=== PATIENT | female | born 1930 | race Caucasian/White ===

== ENCOUNTER → 2016-06-29 | Outpatient (CLI) | payer MEDICARE ==
[~2016-06-29] MED LIST: ALEN70TA3 PO; CHOL10007 PO; ENAL20TA PO; LEVO50TA5 PO; OMEP20TA63 PO; REGADENOSON 0.4 MG/5 ML DISP.SYRIN. IV ONE; VERA180T4 PO; VIT1CAPS11 PO
--- NOTE | 2016-06-29 14:32 | RAD ---
APPROVED REPORT Test Type: Pharmacological Stress Nurse/Tech: Christy Pompa R.N. Test Indications: chest pain Cardiac History: htn Medications: see attached copy Medical History: see ehr Resting ECG: SR see printout Resting Heart Rate: 68 bpm Resting Blood Pressure: 120/72mmHg Pretest Chest Pain: No chest pain Nurse/Tech Notes lungs cta, heart tones regular Consent: The procedure was explained to the patient in lay terms. Informed consent was witnessed. Juan eout was entered into [employer]. History and Stress Test performed by Christy Pompa R.N. Pharm. Details Pharmacologic stress testing was performed using 0.4mg per 5ml of regadenoson given intravenously ove r 7-10 seconds. Stress Symptoms No chest pain or symptoms. POST EXERCISE Reason for Termination: Infusion complete Target HR: No Max HR: 109 bpm Max Blood Pressure: 121/71mmHg Chest Pain: No. Arrhythmia: No. ST Change: No. INTERPRETATION Stress EKG Conclusion: Baseline EKG showed sinus rhythm. No ischemic changes at peak stress. No arr hythmias. Imaging Protocol IMAGE PROTOCOL: Rest Tc-99m/stress Tc-99m 1 day Rest: Stress: Viability: Radiopharm.Tc99m ShmzyfzamKa44z Sestamibi [id number] 34.4mCi Duration 15min. 10min. Img Date 06/29/2016 06/29/2016 Inj-Img [id number]. 75min. Rest Admin Site:IV - Right AntecubitalAdministrator:Bianka Duckworth, RT (R)(N) Stress Admin Site: IV - Right AntecubitalAdministrator: ANA MARIA Nathan, ARRT (R)(N) STRESS DATA End Diast. Vol.49.0mlAv. Heart Rate72.0bpm End Syst. Vol.6.0mlCO Index BSA0.0L/min Myocardial Mass94.0gEject. Txdfpphk76.0% Stress Rates Pk. Fill Rate3.55EDV/secLVtime Pk. Fill 101.71msec Pk. Empty Rate4.91ESV/secLVtime Pk. Uwnlt490.11msec 04/11 Pk. Fill2.28EDV/sec Stress Scores Regional WT0.00Summed WT1.00 Regional WM0.00Summed WM0.00 Study quality was good. Left Ventricular size was Normal at Rest and Stress. Lung uptake was Normal. Left Ventricular ejection fraction is 88%. The rest and stress images show normal perfusion, normal contraction and thickening. LV Perf. Quant 17 Seg. SSS0.00 17 Seg. SRS10.00 17 Seg. SDS0.00 Stress Defect Extent (% LAD)0.00Rest Defect Extent (% LAD)6.30Rev. Defect Extent (% LAD)0.00 Stress Defect Extent (% LCX) 0.00Rest Defect Extent (% LCX)47.50Rev. Defect Extent (% LCX)0.00 Stress Defect Extent (% RCA)0.00Rest Defect Extent (% RCA)2.20Rev. Defect Extent (% RCA)0.00 Stress Defect Extent (% GIOVANI)0.00Rest Defect Extent (% GIOVANI)17.40Rev. Defect Extent (% GIOVANI)0.00 Conclusion 1. Regadenoson cardioisotope stress test did not show any evidence of ischemia or infarct. 2. Normal left ventricular systolic function with ejection fraction calculated at 88%. 3. Low risk for cardiac events.
== END ==
LOC: NM 15:39
PROVIDERS: ATTEND Internal Medicine
DX: R07.9 Chest pain, unspecified (principal)
CPT/HCPCS: 78452; 93017; 96374; 96375; 96376; A9500; J2785

== ENCOUNTER → 2018-01-31 | Outpatient (CLI) | payer MEDICARE ==
[~2018-01-31] MED LIST changes: +CHOL100014 PO; -CHOL10007 PO; -REGADENOSON 0.4 MG/5 ML DISP.SYRIN. IV ONE; -VERA180T4 PO; +VERA180T49 PO
--- NOTE | 2018-01-31 17:31 | RAD ---
Indication:EPIGASTRIC PAIN TECHNIQUE: Grayscale, color Doppler and spectral waveform is of the abdomen obtained. COMPARISON:None FINDINGS:The visualized pancreas is within normal limits. Pancreatic tail not visualized due to overlying bowel gas. IVC is visualized and is patent. No aortic aneurysm. Main portal vein is patent. The liver measures 15 cm in longest dimension with diffusely increased echogenicity and decreased through transmission. CBD measures 7 mm in diameter and is within normal limits. Status post cholecystectomy. Right kidney measures 10.5 cm in length without hydronephrosis. Spleen measures 10 cm in longest dimension and is normal in size. Left kidney measures 11 cm in length without hydronephrosis. IMPRESSION: 1. Hepatic steatosis. 2. Findings of medical renal disease. Electronically signed by: Mekhi Peters DO (01/31/2018 5:28 PM) [facility]
== END | disposition home or self-care (01) ==
LOC: US 10:30
PROVIDERS: ATTEND Internal Medicine
DX: K76.0 Fatty (change of) liver, not elsewhere classified (principal); Z90.49 Acquired absence of other specified parts of digestive tract
CPT/HCPCS: 76700